=== PATIENT | male | born 1975 | race Caucasian/White ===

== ENCOUNTER → 2016-10-18 | Outpatient (CLI) | payer OTHER ==
--- NOTE | ~2016-10-18 | NDGEN ---
PATIENT'S NAME: GO SMITH [facility] AGE: 41 Y [address] ROOM: [place] [id number] LOCATION: [facility] ADMIT DATE: 10/18/2016 Neurodiagnostics DISCHARGE DATE: FAMILY PHYSICIAN: Osmel Siu MD ATTENDING PHYSICIAN: OSCAR OSORIO PROCEDURE: ELECTROENCEPHALOGRAM DATE OF PROCEDURE: 10/18/2016 PROCEDURE PERFORMED: EEG. The patient had this EEG done on 10/18/2016. INDICATIONS FOR PROCEDURE: This is a 41-year-old male patient who has a confirmed generalized seizure history with mostly generalized seizures occurring at bedtime in the middle of the night after commencing sleep at around 90 minutes. The patient is known to have tonic-clonic activity. He is not on any antiseizure medication at this time. This EEG was done to get a baseline background rhythm to look for any evidence of any epileptiform activity. This EEG was performed at 1:55 p.m. DESCRIPTION OF PROCEDURE: The general background rhythm in this 21-lead EEG, which was done with hyperventilation and photic stimulation showed an 8-9 hertz background rhythm that remained stable and symmetric with normal sinusoidal pattern throughout the whole rhythm. At 12 minutes into the study, there was 5 hertz sudden onset of rhythmic activity that is difficult to localize as it appears to be generalized in all leads, but may have a focal onset of higher amplitudes starting in the right temporal-parietal lobe. There were no other features that occurred such as this during the whole study. With photic stimulation, there was a normal photic drive response with amplitudes rising as high as 60 to 75 microvolts. IMPRESSION: This is essentially a normal EEG with normal background rhythm and normal amplitudes throughout with no noted asymmetry. However, during the recording, there was a 5 second burst activity that was rhythmic, possibly had a nidus from the right temporal lobe. This is possibly a normal finding in some persons, but because of a finding in the temporal lobe in particular with a burst of rhythmic activity compared to all leads, this is suggestive of an epileptiform event, but not true seizures. The patient would benefit from monitoring, especially during the evening such as 72-hour monitoring with PATIENT'S NAME: GO SMITH [facility] AGE: 41 Y [address] ROOM: [place] [id number] LOCATION: [facility] ADMIT DATE: 10/18/2016 Neurodiagnostics DISCHARGE DATE: FAMILY PHYSICIAN: Osmel Siu MD ATTENDING PHYSICIAN: OSCAR OSORIO evidence to support the focality of the seizure onset activity. MD CRISTA SALGADO/saqib /[id number] dtt: 11/09/16 1612 , OSCAR OSORIO. dtd: 10/18/16 1642
== END | disposition disaster alternative care site (69) ==
LOC: GNEU 13:00
DX: G40.909 Epilepsy, unspecified, not intractable, without status epilepticus (principal)